=== PATIENT | female | born 1980 | race Caucasian/White ===

== ENCOUNTER 2016-12-26 16:32 | Emergency (ER) | payer OTHER ==
[2016-12-26 16:42] VITALS: BP 156/106
[2016-12-26] MEDS ORDERED: LIDOCAINE HCL 20 ML UDC MM ONE (16:42)
--- NOTE | 2016-12-26 16:58 | ERNOTE ---
[facility] Date of Service: 12/26/16 Presenting Symptoms: dental pain Time Seen by Provider: 12/26/16 16:37 Source: patient Exam Limitations: no limitations - Immun/Allergies/Home Medications Immunizations: IMMUNIZATION HX Immunizations Up to Date Yes History of Influenza Vaccine No Hx Pneumococcal Vaccination No Allergies/Adverse Reactions: Allergies Allergy/AdvReac Type Severity Reaction Status Date / Time No Known Allergies Allergy Verified 12/26/16 16:42 Home Medications: HOME MEDICATIONS Albuterol Sulfate 2.5 mg IH Q2H PRN 12/01/14 [Last Taken 11/23/14 10:00] Multivitamin [Multi-Vitamin Daily] 1 each PO DAILY 12/01/14 [Last Taken 23:00] Clindamycin HCl [Cleocin HCl] 300 mg PO Q6H #40 capsule 12/26/16 [Last Taken Unknown] oxyCODONE HCL/ACETAMINOPHEN [Percocet 5 MG/325 MG] 1 tab PO Q4H PRN #20 tab 12/09 [Last Taken Unknown] - History of Present Illness Narrative: Pt. comes in with c/o L maxillary tooth pain that started this afternoon. Pt. states that she has had cavities in the past but is unaware of any at this time. Pt. states that she last saw the dentist 4 months a go and has an appointment in 10 days for a cleaning. Pt. denies any fever, SOB, CP, alleviating factors but states that air, cold liquids, and eating exacerbates the pain and nothing alleviates it despite taking an Percocet. Review of Systems - Review of Systems Constitutional: Present: no symptoms reported. Absent: recent illness, fever, chills, weakness, fatigue, malaise EYE: Present: no symptoms reported ENT: Present: no symptoms reported Respiratory: Present: no symptoms reported. Absent: shortness of breath, cough , wheezing Cardiology: Present: no symptoms reported. Absent: chest pain, palpitations, edema Gastrointestinal/Abdominal: Present: no symptoms reported. Absent: nausea, vomiting, diarrhea Genitourinary: Present: no symptoms reported Musculoskeletal: Present: no symptoms reported. Absent: back pain, joint pain Skin: Present: no symptoms reported Neurological: Present: no symptoms reported. Absent: headache, dizziness/light- headedness, numbness, tingling All Other Systems: All systems neg except as marked - Patient's Past Medical History Patient History - Medical: No pertinent hx Patient History - Cardiac/Respiratory: Asthma Patient History - Cancer: No Hx of Cancer Patient History - Surgical Procedures: - Family History Father Family History - Medical: Mother Family History - Medical: Fibromyalgia - Social History Living Situations: significant other Psych History: No pertinent hx Smoking Status: Never smoker Have you smoked in the past 12 months: No - Immunizations Immunizations Up to Date: Yes Hx Pneumococcal Vaccination: No History of Influenza Vaccine: No Physical Exam - Physical Exam General Appearance: Present: wd/wn, alert, no apparent distress Eye Exam: Normal inspection: bilateral, PERRL: bilateral, EOMI: bilateral Ears, Nose, Throat: Present: normal pharynx, other - L mandibular canine tooth with cavity around existing filling mild swelling at gumline Neck: Present: normal inspection, nontender. Absent: lymphadenopathy (R), lymphadenopathy (L) Respiratory: Present: no respiratory distress, normal breath sounds, no accessory muscle use, chest nontender, lungs clear Cardiovascular/Chest: Present: regular rate, rhythm, no murmur, normal peripheral pulses Gastrointestinal/Abdominal: Present: normal bowel sounds, nontender, nondistended, soft, no organomegaly Extremity Exam: Present: normal inspection Neurological Exam: Present: alert, oriented, normal mood/affect, no motor/ sensory deficits Skin Exam: Present: normal color, warm/dry. Absent: pallor, skin rash ED Progress - Vital Signs Patient's Vital Signs:: I have reviewed the patient's vital signs. Vital Signs: Vital Signs 12/26/16 16:37 Temperature 36.7 C Pulse Rate 79 Respiratory 14 Rate Blood Pressure 156/106 O2 Sat by Pulse 100 Oximetry - Progress/Reassessment Chief Complaint: Dental Problem Progress:: Unchanged Departure Clinical Impression: Dental caries - Departure Disposition: Home self-care Condition: Good Instructions: Dental Caries Additional Instructions: Please follow up with primary provider in 2-3 days. Referrals: Juan Antonio Delacruz MD [Primary Care Provider] - Prescriptions: Clindamycin HCl [Cleocin HCl] 300 mg PO Q6H #40 capsule oxyCODONE HCL/ACETAMINOPHEN [Percocet 5 MG/325 MG] 1 tab PO Q4H PRN #20 tab PRN Reason: Pain
--- OUTSIDE RECORDS SUMMARY | 2016-12-26 17:01 | XMS REPORT | Continuity of Care Document ---
:1980 Author Organization [facility] ([facility]) Address [address] [place] [address] Phone [phone] Care Team Providers Name Role Phone Provider, No-Primary Care Primary Care Provider Unavailable Source Comments This disclosure is being made pursuant to the Care Everywhere program, applicable federal and state laws, and may not contain all informaitonavailable regarding this patient.[facility] ([facility]) Active Allergies and Adverse Reactions No Known Allergies Current Medications Prescription Sig. Disp. Refills Start Date End Date Status norethindrone-ethinyl Take 1 Tab by mouth Active estradiol triphasic daily. (NECON , 28,) 0.5/0.75/1-35 mg-mcg per tablet multivitamin tablet Take 1 Tab by mouth Active daily. OTHER 1 Tab daily. Veggie 01/18/2010 Active [place] Complex OTHER 1 Tab daily. Complex 01/18/2010 Active for hair, skin, nails OTHER 1 Tab daily. 01/18/2010 Active Concentrated Fruits and Vegetables NABUMETONE (RELAFEN Take by mouth. Active PO) diclofenac-misoprosto Take 1 Tab by mouth 180 Each 11 07/10/2010 Active l (ARTHROTEC 75) 2 times daily. 75-200 mg-mcg per Indications: tablet arthritis traMADol (ULTRAM) 50 Take 50 mg (1 tab) 120 Tab 6 07/10/2010 Active mg tablet up to 4 times a day. Indications: Pain Active Problems Problem Noted Date PAIN IN LIMB 03/27/2010 Physical therapy 03/27/2010 Hypermobility syndrome 01/18/2010 Overview: 07/2009 Presenting with pain "all over" her body and swelling over her lower extremities. Makes chnages in her diet, starts eating more fruits and vegetables less fast food. Swelling partially resolve s, however the pain remains localized in her hands, feet, knees, hips and shoudlers. 08/2009 Started on Relafen - no response 09/19/2009 - Seen by Neurology for the concern of Carpal tunnel syndrome - EMG/ NCV consistent with mild bilateral carpal tunnel syndrome. Prescribed with wrist splints. Fibromyalgia encountered as an explanation for her muscle and joint pains. 11/29/2009 - Seen by Angel Brooks, Ortho - ruled out severe carpal tunnel syndrome and requested Rheuamtology work-up. Bilteral hand x-rays - no destructive joint changes. Phalen's test negative. CBC normal, CRP 1.8 (N up to 0.9)Vitamin D total: 23. D2 <4. In the interval had two courses of Prednisone with some benefit. Also takes diuretics every other day (also benefit from it). 01/18/2010 - Initial Rheumatology evaluation. Hypermobility. Beighton score 7/ 9. No skin laxity. No Marfan's features. No heart murmur. Mother with fibromyalgia-like syndrome. No synovitis on exam. Few tender points. Mild pitting edema around the ankles. Genetic consulting requested. Recommendations : stretching, Relafen, stop prednisone, changes in diet (sodium reduction). Follow Up in [address] an on obtaining abdominal ultrasound and echocardiography. Asthma 01/18/2010 Carpal tunnel syndrome 01/18/2010 Overview: Bilateral. Negative Phalen's test. Mild changes on EMG/NCV. Social History Tobacco Use Types Packs/Day Years Used Date Never Smoker Alcohol Use Drinks/Week oz/Week Comments No Last Filed Vital Signs Vital Sign Reading Time Taken Blood Pressure 114/74 07/10/2010 4:35 PM IMAGING ADMINISTRATOR Pulse 76 07/10/2010 4:35 PM IMAGING ADMINISTRATOR Temperature 36.3 C (97.3 F) 07/10/2010 4:35 PM IMAGING ADMINISTRATOR Respiratory Rate - - Height 1.6 m (5' 3") 05/14/2010 8:45 AM CDT Weight 77.021 kg (169 lb 12.8 oz) 07/10/2010 4:35 PM IMAGING ADMINISTRATOR Body Mass Index 30.09 07/10/2010 4:35 PM IMAGING ADMINISTRATOR Oxygen Saturation - - Plan of Care Health Maintenance Due Date Last Done Comments Hepatitis B Vaccine (1 of 3 - Primary Series) 1980 Tdap Vaccine 12/07/1991 Lipid Disorder Screening 1998 MMR Vaccine 1998 Td Vaccine 1998 Pneumococcal Vaccine (1 of 1 - PPSV23) 12/07/1999 Cervical Cancer Screening 2010 Influenza Vaccine: Seasonal (#1) 03/25/2016 Results from Last 3 Months Not on file
== END 2016-12-26 16:57 | disposition home or self-care (01) ==
LOC: ER 16:32
DX: K02.9 Dental caries, unspecified (principal); J45.909 Unspecified asthma, uncomplicated